=== PATIENT | female | born 1990 | race Caucasian/White ===

== ENCOUNTER 2018-01-31 21:02 | Inpatient (IN) ==
[2018-01-31] MEDS ORDERED: Oxytocin 30 Units/500ml Premix 30 UNITS/500 ML BAG IV.SIG ONE (21:48)
[2018-01-31] MEDS ORDERED: Sodium Chlor 0.9% Inj 500 ML IV.SIG PRN (21:48)
[2018-01-31] MEDS ORDERED: Naloxone Inj 0.4 MG/ML Vial IV.PUSH PRN (21:48)
[2018-01-31] MEDS ORDERED: Sod Chloride 0.9% Inj 1,000 ML IV.CONT PRN (21:48)
[2018-01-31] MEDS ORDERED: fentaNYL Citrate Inj 100 MCG/2 ML Ampul IV.PUSH PRN ×2 (21:48)
--- NOTE | 2018-01-31 21:51 | P.HPOB ---
Patient Name: Faye Leblanc Date of : 89 Patient Status: Emergency Emergency Provider: Abhay Pruitt Date: 01/31/18 11:53 Initialization Date: 01/31/18 11:53 History of Present Illness Primary Care Physician: No Primary Care Physician History of Present Illness: at 38 weeks 3 days, presents with worsening contractions. Patient also states she has had some bloody discharge since her cervical exam next week and some mucus discharge. She has irregular contractions over the last month. No regular contractions. Positive movement. No gush of watery fluid. OB history: This complicated by hydronephrosis that has since resolved hx of x 2012 Medical history: None Surgical history: Tonsillectomy Medications: vitamins Allergies: None Review of Systems All other systems reviewed negative except as stated in HPI PMFSH - History History Provided By: Patient - Tobacco History Second Hand Smoke Exposure: No Smoking Status: Never smoker - Alcohol History How Often Do You Have a Drink Containing Alcohol: Never - Substance Use History Substance History: No History of Abuse - Travel History History of Recent Travel: No Medications and Allergies Allergies Allergy/AdvReac Type Severity Reaction Status Date / Time No Known Allergies Allergy Unknown No Uncoded 01/13/18 11:48 allergies Home Medications Medication Instructions Recorded Confirmed Type folic acid 0.4 mg PO DAILY 01/13/18 01/13/18 History vit,[id number] 1 tab PO DAILY 01/13/18 01/13/18 History [Prenatabs FA] Exam Vital signs: Vital Signs 01/31/18 11:36 Temperature 98.7 F Pulse Rate 97 H Respiratory Rate 20 Blood Pressure 108/65 Narrative: GENERAL: Well-nourished, well-developed patient. SKIN: Warm and dry. HEAD: Normocephalic and atraumatic. EYES: No scleral icterus. No injection or drainage. ENT: No nasal drainage noted. Mucous membranes pink. Airway patent. NECK: Supple, trachea midline. No JVD. CARDIOVASCULAR: Regular rate and rhythm without murmurs, gallops, or rubs. RESPIRATORY: Breath sounds equal bilaterally. No accessory muscle use. ABDOMEN/GI: Abdomen soft, non-tender, bowel sounds present, no rebound, no guarding Gravid to 39 weeks size Fundal Height: 39 SVE: 6/90/-1/vtx GENITOURINARY: External Genitalia: intact and normal in appearance FHT's: Cat 1, +accels, no decels irregular cxns on monitor EXTREMITIES: No cyanosis or edema. BACK: Nontender without obvious deformity. No CVA tenderness. NEUROLOGICAL: Awake and alert. Motor and sensory grossly within normal limits. Five out of 5 muscle strength in all muscle groups. Normal speech. Assessment and Plan - Diagnosis (1) 38 weeks gestation of Code(s): Z3A.38 - 38 weeks gestation of Status: Acute Plan: at 38 weeks 3 days, presents with regular painful contractions 2- uterine contractions - Plan to admit for labor management and anticipate vaginal delivery by Dr. Naik Discharge Plan - Discharge Disposition Patient Disposition: 01 Discharge Home - Discharge Condition Condition: Stable - Discharge Order Discharge Orders: Discharge Order (Routine); Ordered 01/31/18 Ordered By: Gela Leiva - Discharge Details Anticipated Discharge Date: 01/31/18 - Physicians Team ED Provider: Abhay Pruitt Primary Care Provider: Primary Care [facility] - Rxs /Orders / Referrals /Forms Prescriptions: No Action folic acid 400 mcg Tablet 0.4 mg PO DAILY vit,[id number] [Prenatabs FA] 29-1 mg Tablet 1 tab PO DAILY - Discharge Instructions Print Language: Greenlandic
[2018-01-31] MEDS ORDERED: Citric Acid/Sodium Citrate Liq 30 ML UDC PO SCH (22:00)
[2018-01-31 22:08] LABS: Baso % (Auto) 0.2 % (0.0-2.0); Eos # (Auto) 0.1 th/mm3 (0.0-0.4); Eos % (Auto) 0.5 % (0.0-4.0); Hematocrit 35.5 % (35.0-46.0); Hemoglobin 12.1 gm/dL (11.6-15.3); Lymph # (Auto) 1.9 th/mm3 (1.0-4.8); Lymph % (Auto) 10.9 % (9.0-44.0); Mean Corpuscular HGB Conc 34.1 % (32.0-36.0); Mean Corpuscular Hemoglobin 29.3 pg (27.0-34.0); Mean Corpuscular Volume 85.9 fL (80.0-100.0); Mono # (Auto) 1.3 th/mm3 (0.0-0.9); Mono % (Auto) 7.2 % (0.0-8.0); Neut # (Auto) 14.1 th/mm3 (1.8-7.7); Neut % (Auto) 81.2 % (16.0-70.0); Platelet Count 180 th/mm3 (150-450); Red Blood Count 4.13 mil/mm3 (4.00-5.30); Red Cell Distribution Width 15.1 % (11.6-17.2); White Blood Count 17.4 th/mm3 (4.0-11.0)
[2018-01-31] MEDS ORDERED: fentaNYL 2MCG-Bupiv 0.125% Epi 150 ML EPIDURAL ONE (22:14)
[2018-01-31] MEDS ORDERED: Lidocaine PF 1% Inj 5 ML Vial ONE (22:25)
[2018-01-31] MEDS ORDERED: Lidocaaine 1.5%/Epinephrine 1:200,000 PF Inj 5 ML Amp ONE (22:25)
[2018-01-31] MEDS ORDERED: fentaNYL Citrate Inj 100 MCG/2 ML Ampul EPIDURAL ONE (23:08)
[2018-01-31] MEDS ORDERED: fentaNYL 2MCG-Bupiv 0.125% Epi 150 ML EPIDURAL PRN (23:08)
[2018-01-31 23:12] LABS: Amphetamine Urine With Conf Neg (Neg); Benzodiazepine Urine With Conf Neg (Neg)
[2018-01-31 23:13] LABS: Bacteria,Urine Rare /hpf; Bilirubin,Urine Negative (Negative); Calcium Oxalate Crystals,Urine Moderate /hpf; Clarity,Urine Cloudy (Clear); Color,Urine Yellow (Yellw/Straw); Glucose,Urine (UA) Negative (Negative); Leukocyte Esterase,Urine Large (Negative); Mucus,Urine Many /lpf (Occasional); Nitrite,Urine Negative (Negative); Squamous Epithelial Cell,Urine 5 /hpf (0-5)
[2018-02-01] MEDS ORDERED: Lidocaine 1% Inj 50 ML Vial ONE (00:20)
[2018-02-01] MEDS ORDERED: Penicillin G Potassium Inj 5,000,000 UNIT in Sodium Chloride 0.9% Inj 100 ML IV.SIG ONE (01:00)
[2018-02-01] MEDS ORDERED: Zolpidem Tartrate 5 MG Tablet PO PRN (01:24)
[2018-02-01] MEDS ORDERED: Bisacodyl 10 MG Supp RECTAL PRN (01:24)
[2018-02-01] MEDS ORDERED: Witch Hazel 50%/Glyderin 12.5% 40 Pad Jar RECTAL PRN (01:24)
[2018-02-01] MEDS ORDERED: Benzocaine 20% Top Spray 60 ML Can TOPICAL PRN (01:24)
[2018-02-01] MEDS ORDERED: Oxytocin 30 Units/500ml Premix 30 UNITS/500 ML BAG IV.CONT PRN (01:24)
[2018-02-01] MEDS ORDERED: Acetaminophen 325 MG Tablet PO PRN (01:24)
[2018-02-01] MEDS ORDERED: Naloxone Inj 0.4 MG/ML Vial IV.PUSH PRN (01:24)
--- NOTE | 2018-02-01 01:29 | P.OBDELI ---
Weeks Gestation: 38 Patient Started Active Labor: Yes Active Labor Start Date: 01/31/18 Medical Induction of Labor: No Artificial Rupture of Membrane: No Anesthesia: Epidural Episiotomy: none Vaginal Delivery: Normal Presentation: Occiput posterior Nuchal Cord: None Delayed Cord Clamping (45 sec): Yes Placenta: Spontaneous delivery, Intact, Uterus explored +, 3 vessel cord Laceration: 1 deg Repair: Vicryl running Estimated blood loss (mL): 300 Male A Delivery Date: 02/01/18 Additional Information: Beautiful delivery of Mk Intact perineum and small first degree right labial tear Repaired with 5-0 vicryl.
[2018-02-01] MEDS: Senna/Docusate Sodium 8.6/50 MG Tablet PO SCH ×2 (08:28→21:26)
[2018-02-01] MEDS ORDERED: Diphtheria/Tetanus/Pertussis Vaccine Inj 0.5 ML Syringe IM ONE (16:00)
[2018-02-01] MEDS ORDERED: Measles/Mumps/Rubella Vaccine Inj 0.5 ML Vial SQ ONE (16:00)
[2018-02-02] MEDS: Senna/Docusate Sodium 8.6/50 MG Tablet PO SCH (08:41)
--- NOTE | 2018-02-02 08:48 | P.PNOB ---
Subjective Post day: 1 Objective Vital Signs/I&O: Vital Signs 02/01/18 20:00 Temperature 98.3 F Pulse Rate 76 Respiratory Rate 18 Blood Pressure 102/62 Result Diagrams: 01/31/18 21:54 Objective Remarks: GENERAL: Well-nourished, well-developed patient. CARDIOVASCULAR: Regular rate and rhythm without murmurs, gallops, or rubs. RESPIRATORY: Breath sounds equal bilaterally. No accessory muscle use. ABDOMEN/GI: Abdomen soft, non-tender. Fundus: Firm, non-tender at umbilicus. GENITOURINARY: Light to moderate bleeding. EXTREMITIES: No cyanosis or edema, non-tender, without signs of DVT. Medications and IVs: Active Medications Acetaminophen (Tylenol) 650 mg PO Q4H PRN PRN Reason: PAIN SCALE 1 TO 2 Al Hydroxide/Mg Hydroxide (Milk Of Magnesia Liq) 30 ml PO Q12H PRN PRN Reason: Mild Constipation Benzocaine (Americaine 20% Top [place]) 1 spray TOPICAL Q4H PRN PRN Reason: For Perineum Discomfort Bisacodyl (Dulcolax Supp) 10 mg RECTAL DAILY PRN PRN Reason: SEVERE CONSITIPATION Oxytocin (Pitocin 30 Units/Ns 500 Ml Premix) 30 units in 500 mls @ 100 mls/hr IV.CONT UNSCH PRN PRN Reason: Heavy bleeding Ibuprofen (Motrin) 800 mg PO Q8H PRN PRN Reason: For Cramping Last Admin: 02/02/18 03:32 Dose: 800 mg Lactulose (Lactulose Liq) 30 ml PO DAILY PRN PRN Reason: SEVERE CONSITIPATION Naloxone HCl (Narcan Inj) 0.1 mg IV.PUSH Q2M PRN PRN Reason: for opiate reversal Ondansetron HCl (Zofran Odt) 4 mg PO Q6H PRN PRN Reason: NAUSEA OR VOMITING Senna/Docusate Sodium (Valeria-Colace) 1 tab PO BID [facility] Last Admin: 02/02/18 08:41 Dose: 1 tab Sennosides (Senokot) 17.2 mg PO Q12H PRN PRN Reason: Moderate Constipation Sodium Chloride (Ns Flush) 2 ml IV.FLUSH BID [facility] Last Admin: 02/01/18 08:28 Dose: 2 ml Sodium Chloride (Ns Flush) 2 ml IV.FLUSH PRN PRN PRN Reason: FLUSH AFTER USING IV ACCESS Witch Carolann/Glycerin (Tucks Pads) 1 applicatio RECTAL QID PRN PRN Reason: HEMORRHOIDS Zolpidem Tartrate (Ambien) 5 mg PO HS PRN PRN Reason: SLEEP Assessment and Plan - Plan PT DOING WELL PAIN WELL MANAGED WITH ORAL PAIN MEDICATION BREAST FEEDING AND BONDING WITH ROUTINE CARE Discharge Planning: DC HOME TODAY
--- NOTE | 2018-02-02 09:02 | P.DS ---
Date of admission: 01/31/18 21:54 Primary care physician: NOT REQUIRED Anticipated date of discharge: 02/02/18 Brief History from admission: 38 WEEK GESTATION, ADMITTED FOR CONTRACTIONS DS: Diagnosis - Discharge Diagnosis (1) (normal spontaneous vaginal delivery) Status: Acute DS: Medications - Discharge Medications Prescriptions: ibuprofen 800 mg PO Q8H PRN #30 tab PRN Reason: For Cramping DS: Summary Hospital Course: 38 WEEK GESTATION, ADMITTED FOR LABOR, ,ROUTINE CARE - Time Spent with Patient Total time spent providing and/or coordinating discharge services: Less than 30 minutes Exam Vital signs: Vital Signs 02/01/18 20:00 Temperature 98.3 F Pulse Rate 76 Respiratory Rate 18 Blood Pressure 102/62 Narrative: SEE POST EXAM Results Procedures completed during hospitalization: Labs on day of discharge: Preliminary micro results at discharge 01/31/18 21:30 Urine Culture - Preliminary Clean Catch Urine Results Pending Discharge Plan - Discharge Disposition Patient Disposition: 01 Discharge Home - Discharge Condition Condition: Good - Discharge Order Discharge Orders: Discharge Order (Routine); Ordered 02/02/18 Ordered By: Shanelle Andrade MIXER RUNNER Clear for Discharge (Routine); Ordered 02/02/18 Ordered By: Shanelle Andrade - Discharge Details Anticipated Discharge Date: 02/02/18 - Physicians Team Primary Care Provider: NOT REQUIRED, Attending Provider: Alexander Naik
[2018-02-03] MEDS: Senna/Docusate Sodium 8.6/50 MG Tablet PO SCH ×2 (00:45→09:11)
[2018-02-03 09:15] VITALS: PULSE 91; RESP 20
[2018-02-03 09:16] VITALS: BP 109/73; TEMP 98.2
== END 2018-02-03 11:26 | disposition home or self-care (01) ==
LOC: HOBED 21:02 → H2E 21:54 → H1EA 02-01 03:08
PROVIDERS: ADMIT Obstetrics & Gynecology; ATTEND Obstetrics & Gynecology